=== PATIENT | female | born 1970 | race Caucasian/White ===

== ENCOUNTER 2020-10-25 10:20 | Outpatient (CLI) | payer OTHER, BC, SELFPAY ==
--- NOTE | 2020-10-25 10:28 | MM_ITS ---
WS: [id number] Exam: [id number] Date/Time of Exam: 10/25/2020 10:31 AM Reason For Exam: SCREENING VIEWS: MLO and CC views both breasts. Comparison made with prior exam of 10/04/2014, 02/18/2016, 09/09/2017.. Findings: There was no sign of mass, architectural distortion or suspicious calcification in either breast. He terogeneously dense MM/[id number] Impression: BI-RADS: 2-Benign FOLLOW-UP: 1 Year Follow-up This mammogram was also analyzed by the Computer Aided Detection System R2 Imag e Forecast Analyst.
== END 2020-10-25 10:21 | disposition home or self-care (01) ==
LOC: RADSHAW 10:27
PROVIDERS: PCP Nurse Practitioner Family; Visit Provider Nurse Practitioner Family
DX: Z12.31 Encounter for screening mammogram for malignant neoplasm of breast (principal)
CPT/HCPCS: 77067